=== PATIENT | female | born 1995 | race Two or more races ===

== ENCOUNTER 2024-08-19 12:39 | Emergency (ER) | payer SELFPAY ==
[~2024-08-19] VITALS: Ht 165.1 cm; Wt 74.3 kg
[2024-08-19 14:32] LABS: Urine Bacteria FEW /hpf (None Seen); Urine Blood Negative /uL (Negative); Urine Clarity Turbid (Clear); Urine Color Colorless (Yellow); Urine Protein, UAD Negative (Negative); Urine Specific Gravity 1.012 (1.001-1.035); Urine Urobilinogen Normal (Negative); Urine WBC 9 /hpf (0 - 5)
[2024-08-19 15:57] VITALS: BP 112/70; PULSE 74; RESP 14; O2SAT 98
[2024-08-19 16:09] VITALS: TEMP 98.6
[2024-08-19] MEDS: ACETAMINOPHEN 500 MG TAB PO ONE (16:09)
[2024-08-19] MEDS ORDERED: ACET-1080 PO (16:29)
== END 2024-08-19 16:58 | disposition home or self-care (01) ==
LOC: ER 12:47
DX: O26.832 Pregnancy related renal disease, second trimester (principal); N20.0 Calculus of kidney; Z3A.14 14 weeks gestation of pregnancy
CPT/HCPCS: 76775; 76805; 81001; 81025